=== PATIENT | male | born 1995 | race Caucasian/White ===

== ENCOUNTER 2016-06-01 16:02 | Inpatient (IN) | payer OTHER ==
--- NOTE | 2016-06-01 16:27 | Emergency Department Report ---
Chief Complaint: Upper Respiratory Infection Stated Complaint: CONGESTION/HEADACHE Time Seen by Provider: 06/01/16 16:27 - HPI History of Present Illness: 20 year old male presents with cough and chest congestion. states that he had URI symptoms few days ago such as sore throat and runny nose that are improved. states now he is still cough, having sob and Arturo. sates feeling chills and feverish. - Exam Vital Signs: Vital Signs 06/01/16 16:11 Temperature 98.6 F Pulse Rate 126 H Respiratory 18 Rate Blood Pressure 116/78 O2 Sat by Pulse 93 Oximetry Physical Exam: patient doesnt appear distressed HR is 126 O2 is 93% lungs- slight wheezing, otherwise CTA cardio- RRR MSE screening note: Focused history and physical exam performed. Due to findings the following was ordered: ED Disposition for MSE Condition: Stable
[2016-06-01 17:14] LABS: Hemoglobin 16.6 gm/dl (11.8-15.2); Mean Corpuscular HGB Conc 34 % (32-34); Mean Corpuscular Hemoglobin 31 pg (28-32); Mean Corpuscular Volume 92 fl (84-94); Platelet Count 225 K/mm3 (140-440); Red Blood Count 5.34 M/mm3 (3.65-5.03); Red Cell Distribution Width 12.8 % (13.2-15.2); White Blood Count 14.4 K/mm3 (4.5-11.0)
[2016-06-01 17:48] LABS: Alanine Aminotransferase 12 units/L (7-56); Albumin 3.8 g/dL (3.9-5); Albumin/Globulin Ratio 1.2 %; Alkaline Phosphatase 83 units/L (35-129); Anion Gap 21 mmol/L; Bilirubin,Total 0.6 mg/dL (0.1-1.2); Blood Urea Nitrogen 18 mg/dL (9-20); Calcium 8.7 mg/dL (8.4-10.2); Carbon Dioxide 23 mmol/L (22-30); Chloride 94.4 mmol/L (98-107); Glucose 125 mg/dL (75-100); Potassium 4.7 mmol/L (3.6-5.0); Sodium 134 mmol/L (137-145); Total Protein 7.1 g/dL (6.3-8.2)
[2016-06-01 18:54] LABS: Basophils % (Manual) 0 % (0.0-1.8); Blastocytes % (Manual) 0 %; Diff Status Complete; Eosinophils % (Manual) 0 % (0.0-4.3); RBC Morphology Normal
[2016-06-02] MEDS ORDERED: NACL 0.9% 1000 ML 1,000 ML IV ONE ×2 (02:20→07:14)
[2016-06-02] MEDS ORDERED: XOPENEX IH ONE (02:23)
[2016-06-02] MEDS ORDERED: LEVAQUIN 750MG/150ML 150 ML IV ONE (02:23)
--- NOTE | 2016-06-02 02:26 | Emergency Department Report ---
HPI - General Chief Complaint: Upper Respiratory Infection Time Seen by Provider: 06/02/16 02:19 - HPI HPI: This is a 20-year-old male presents to the emergency department with complaint of a 2 day history of a productive cough, chest congestion and discomfort as well as a headache. Patient was found to have an oxygen saturation of 93% on room air. Triage. The shortness of breath worsens with walking. No recent travel or sick contacts at home. He does not have a primary care doctor. Patient does not present with any fever but has been having some intermittent chills and sweats. He has not taken anything for his symptoms prior to presentation. He has a past medical history of asthma. He denies tobacco abuse. ED Past Medical Hx - Medications Home Medications: Home Medications Medication Instructions Recorded Confirmed Last Taken Type No Known Home Medications [No 06/01/16 06/01/16 Unknown History Reported Home Medications] ED Review of Systems ROS: Stated complaint: CONGESTION/HEADACHE Other details as noted in HPI Comment: All other systems reviewed and negative Constitutional: chills, fever (subjective) Eyes: denies: eye pain, eye discharge, vision change ENT: denies: ear pain, throat pain Respiratory: cough, shortness of breath Cardiovascular: chest pain. denies: palpitations Gastrointestinal: denies: abdominal pain, nausea, diarrhea Genitourinary: denies: urgency, dysuria Musculoskeletal: denies: back pain, joint swelling, arthralgia Skin: denies: rash, lesions Neurological: headache. denies: weakness Physical Exam - Physical Exam Vital Signs: Vital Signs 06/01/16 16:11 Temperature 98.6 F Pulse Rate 126 H Respiratory 18 Rate Blood Pressure 116/78 O2 Sat by Pulse 93 Oximetry Physical Exam: GENERAL: The patient is well-developed well-nourished. HEENT: Normocephalic. Atraumatic. Extraocular motions are intact. Patient has moist mucous membranes. Pupils equal reactive to light bilaterally. NECK: Supple. Trachea is midline. CHEST/LUNGS: Patient has rhonchi to the right base. Mild wheezing throughout the chest. A productive cough heard during examination. There is mild tachypnea but no accessory muscle use. There is no respiratory distress noted. HEART/CARDIOVASCULAR: Regular. There is mild to moderate tachycardia. There is no gallop rub or murmur. ABDOMEN: Abdomen is soft, nontender. Patient has normal bowel sounds. There is no abdominal distention. SKIN: There is no rash. There is no edema. There is no diaphoresis. NEURO: The patient is awake, alert, and oriented. The patient is cooperative. The patient has no focal neurologic deficits. The patient has normal speech. MUSCULOSKELETAL: There is no tenderness or deformity. There is no limitation range of motion. There is no evidence of acute injury. ED Course Vital Signs 06/01/16 16:11 Temperature 98.6 F Pulse Rate 126 H Respiratory 18 Rate Blood Pressure 116/78 O2 Sat by Pulse 93 Oximetry ED Medical Decision Making - Lab Data Result diagrams: 06/01/16 16:47 06/01/16 16:47 - Radiology Data Radiology results: image reviewed interpreted by me: Chest x-ray shows patchy infiltrates to the right middle and/or lower lobe consistent with pneumonia. - Medical Decision Making 20-year-old male presents to the emergency department with some chest pain and shortness breath and some mild hypoxia on room air. Lung sounds are consistent with rhonchi on the right side. This is compatible with the chest x-ray which shows infiltrates to the right lower and/or middle lobes concerning for pneumonia. Patient has consistent tachycardia despite IV fluid resuscitation. Blood cultures obtained and patient started on IV antibiotics and will be admitted to the hospital for multilobar pneumonia. - Differential Diagnosis pneumonia, bronchitis, asthma, CHF, PE Critical Care Time: No Critical care attestation.: If time is entered above; I have spent that time in minutes in the direct care of this critically ill patient, excluding procedure time. ED Disposition Clinical Impression: Pneumonia Qualifiers: Pneumonia type: due to unspecified organism Laterality: right Lung location: unspecified part of lung Qualified Code(s): J18.9 - Pneumonia, unspecified organism Dyspnea Qualifiers: Dyspnea type: shortness of breath Qualified Code(s): R06.02 - Shortness of breath Chest pain Qualifiers: Chest pain type: unspecified Qualified Code(s): R07.9 - Chest pain, unspecified Disposition: OP ADMITTED IP TO THIS HOSP Is pt being admited?: Yes Condition: Stable Instructions: Bacterial Pneumonia (ED), Chest Pain (ED) Time of Disposition: 04:04
[2016-06-02] MEDS ORDERED: NACL 0.9% NEBU ONE (02:59)
--- NOTE | 2016-06-02 03:13 | XRay Report ---
FINAL REPORT EXAM: XR CHEST ROUTINE 2V HISTORY: cough, low 02 COMPARISON: None available. FINDINGS:: Frontal and lateral views of the chest obtained. Cardiac silhouette is within normal limits. Patchy airspace consolidation right lower lobe and right middle lobe concerning for pneumonia. Left lung is grossly clear. No pneumothorax. Bony structures are grossly intact. IMPRESSION:: Patchy airspace consolidations right middle lobe and right lower lobe concerning for pneumonia.
--- NOTE | 2016-06-02 04:12 | History and Physical Report ---
History of Present Illness Chief complaint: Coughing up stuff History of present illness: 20 YO male with Asthma presents to ED for evaluation. PT states that he has been experiencing productive cough of yellow-greenish sputum for the past 3 days. Pt acknowledges shortness of breath, chills, sweats. Pt denies recent travel or sick contacts at home, risk factors for HIV. Past History Past Medical History: No medical history, other (reviewed) Past Surgical History: No surgical history, Other (reviewed) Social history: no significant social history Family history: no significant family history Medications and Allergies Allergies Allergy/AdvReac Type Severity Reaction Status Date / Time amoxicillin Allergy Vomiting Verified 06/01/16 16:15 Home Medications Medication Instructions Recorded Confirmed Last Taken Type No Known Home Medications [No 06/01/16 06/01/16 Unknown History Reported Home Medications] Review of Systems All systems: negative Respiratory: cough Exam - Constitutional Vitals: Temp Pulse Resp BP Pulse Ox 98.6 F 129 H 20 99/53 95 06/01/16 16:11 06/02/16 03:18 06/02/16 03:18 06/02/16 03:08 06/02/16 03:08 General appearance: Present: no acute distress, well-nourished - EENT Eyes: Present: PERRL ENT: hearing intact, clear oral mucosa - Neck Neck: Present: supple, normal ROM - Respiratory Respiratory effort: normal Respiratory: bilateral: CTA - Cardiovascular Heart Sounds: Present: S1 & S2. Absent: rub, click - Extremities Extremities: pulses symmetrical, No edema Peripheral Pulses: within normal limits - Abdominal General gastrointestinal: Present: soft, non-tender, non-distended, normal bowel sounds Male genitourinary: Present: normal - Integumentary Integumentary: Present: clear, warm, dry - Musculoskeletal Musculoskeletal: gait normal, strength equal bilaterally - Psychiatric Psychiatric: appropriate mood/affect, intact judgment & insight - Neurologic Neurologic: CNII-XII intact, moves all extremities Results - Labs CBC & Chem 7: 06/01/16 16:47 06/01/16 16:47 Labs: Abnormal lab results 06/01/16 06/01/16 Range/Units 16:47 16:47 WBC 14.4 H (4.5-11.0) K/mm3 RBC 5.34 H (3.65-5.03) M/mm3 Hgb 16.6 H (11.8-15.2) gm/dl Hct 49.0 H (35.5-45.6) % RDW 12.8 L (13.2-15.2) % Seg Neuts % (Manual) 94.0 H (40.0-70.0) % Lymphocytes % (Manual) 4.0 L (13.4-35.0) % Seg Neutrophils # Man 13.5 H (1.8-7.7) K/mm3 Lymphocytes # (Manual) 0.6 L (1.2-5.4) K/mm3 Sodium 134 L (137-145) mmol/L Chloride 94.4 L (98-107) mmol/L Glucose 125 H (75-100) mg/dL Albumin 3.8 L (3.9-5) g/dL Assessment and Plan - Patient Problems (1) Pneumonia Current Visit: Yes Status: Acute Qualifiers: Pneumonia type: due to unspecified organism Laterality: right Lung location: unspecified part of lung Qualified Code(s): J18.9 - Pneumonia, unspecified organism Plan to address problem: Pneumonia protocol: Iv abx, ivf, blood cultures, supportive care. (2) DVT prophylaxis Current Visit: Yes Status: Acute
[2016-06-02] MEDS ORDERED: TYLENOL PO PRN (04:13)
[2016-06-02] MEDS ORDERED: VANCOMYCIN VIAL 1,250 MG in NACL 0.9% 500 ML 500 ML IV ONE (04:15)
[2016-06-02] MEDS ORDERED: PROVENTIL IH PRN (07:13)
--- NOTE | 2016-06-02 07:58 | Admit Criteria Form ---
Admission Criteria Documentation: PULMONARY DISEASE GRG Clinical Indications for Admission to Inpatient Care ( Place 'X' for any and all applicable criteria): Hospital admission is needed for appropriate care of the patient because of ANY ONE of the following(1): [ ]I. Impending or actual respiratory arrest ( Use Respiratory Failure Criteria for severe respiratory disease and long-term mechanical ventilation patients) (4) [ ]II. Severe airflow or ventilation abnormalities (not responsive to emergency and observation care treatment as appropriate) as indicated by ANY ONE of the following(5)(6)(7)(8) : [ ]a) PCO2 > 42 mm Hg (5.6 kPa) and pH < 7.35 (new) [ ]b) Documented PCO2 increase > 5 mm Hg (0.7 kPa) from disease baseline [ ]c) Airflow measurements[A] < 60% of previous best or predicted ( e.g., PEF <300 L/minute) despite intensive emergent treatment[B] [ ]d) Required respiratory treatments that are performable only in acute inpatient setting [X ]III. Severe respiratory findings (not responsive to emergency and observation care treatment as appropriate) including ANY ONE of the following(5)(8)(9): [X ]a) Respiratory distress as indicated by ALL of the following(5)(10) : [ X]i) Patient with ANY ONE of the following: [X ]1) Dyspnea (difficulty breathing) [ ]2) Abnormal breathing pattern (eg, chest retractions) [ ]3) Tachypnea [ ]4) Other evidence of difficulty breathing [X ]ii) Evidence of respiratory compromise indicated by ANY ONE of the following: [X ]1) Hypoxemia [ ]2) Altered mental status [ ]3) Other evidence of respiratory compromise (eg, pulmonary edema on chest x-ray) [ ]b) Stridor [ ]c) Gross hemoptysis(11) [ ]d) Acute cyanosis [ ]IV. High-risk pulmonary infection as indicated by ANY ONE of the following( 19)(20)(21)(22): [ ]a) Temperature less than 95 degrees F(35 degrees C) or greater than 103.1 degrees F(39.5 degrees C) [ ]b) Hemodynamic instability that remains after emergency or observation level care (as appropriate) [ ]c) Immunocompromised patient (eg, AIDS, post transplant, neutropenic) [ ]d) History of severe COPD [ ]e) History of severely symptomatic congestive heart failure [ ]f) Other high-risk comorbidity (eg, poorly controlled diabetes, cirrhosis, chronic renal insufficiency) [ ]g) Hypoxemia (new) [ ]h) Outpatient, observation, or recovery facility therapy has failed, is not appropriate, or is not feasible [ ]V. Severe atelectasis or lung collapse(15)(16) [ ]. Tuberculosis requiring inpatient treatment as indicated by ANY ONE of the following(17)(18): [ ]a) New positive acid-fast bacilli sputum smear [ ]b) Positive acid-fast bacilli smear (under current treatment), with ANY ONE of the following: [ ]i) Unexposed household contacts [ ]ii) Infants or immunosuppressed household contacts [ ]iii) Patient unable or unwilling to avoid exposing others [ ]iv) Severe immunocompromised patient (eg, AIDS, post transplant, neutropenic) [ ]VII. Empyema or lung abscess(13)(14) [ ]VIII. Severe pulmonary arterial hypertension or pulmonary vascular disease requiring inpatient care indicated by ANY ONE of the following(24)(25): [ ]a) Initiation or change of vasodilators (IV, subcutaneous, or inhaled) or other vasoactive medications needed [ ]b) IV anticoagulation needed (eg, immediate anticoagulation necessary, alternatives not appropriate) [ ]c) Arterial or pulmonary artery catheter monitoring needed due to infusion or other treatment [ ]IX. Chronic lung disease with severe deterioration (not responsive to emergency and observation care treatment as appropriate) as indicated by ANY ONE of the following (6)(12): [ ]a) SaO2 5% below baseline in patient with chronic hypoxemia [ ]b) New requirement for supplemental oxygen to keep SaO2 at baseline or acceptable level [ ]c) Required supplemental oxygen performable only in acute inpatient setting [ ]d) Severe airflow or ventilation abnormalities [ ]e) Rapid rate of exacerbation onset [ ]f) Previously mobile patient unable to walk between rooms [ ]g) Inability to eat or sleep due to dyspnea [ ]h) Altered mental status [ ]X. Cystic fibrosis with severe deterioration as indicated by ANY ONE of the following(26)(27): [ ]a) Severe exacerbation that does not respond to intensified home therapy [ ]b) Pneumonia [ ]c) Hemoptysis [ ]d) Atelectasis [ ]e) Pneumothorax [ ]f) Respiratory failure [ ]g) Severe exacerbation with patient unable to perform prescribed treatments at home [ ]XI. Severe right heart failure as indicated by ANY ONE of the following(24) (25): [ ]a) Increasing organ failure (eg, liver congestion with significant and worsening or new elevation of transaminases) [ ]b) Anasarca [ ]c) Angina that requires inpatient care (eg, not treatable in emergency or observation level of care) [ ]d) Respiratory distress [ ]e) Syncope [ ]f) SBP < 90 mm Hg (new) [ ]XII. Injury requiring inpatient care (medical) as indicated by ANY ONE of the following(28): [ ]a) Significant inhalation injury (eg, smoke inhalation, other toxic inhalation) (29)(30)(31) [ ]b) Airway obstruction that remains or is unstable after emergency or observation level care(32) [ ]c) Severe pain requiring acute inpatient management [ ]d) Lung contusion [ ]e) Bronchial tree injury [ ]f) Air or fat emboli(33) [ ]g) Other injury not treatable in emergency or observation level care (eg, hemothorax) (34) [ ]XIII. Pulmonary hemorrhage or significant hemoptysis(11)(35)(36) [ ]XIV. Inpatient palliative care needed[C](37)(38)(39)(40) [ ]XV. Complications of lung transplant (eg, rejection, failure, respiratory infection) (23) [ ]XVI. Pulmonary Disease and ANY ONE of the following: [ ]a) General Admission Criteria [ ]b) Pediatric General Admission Criteria The original [facility] content created by [facility] has been revised. The portions of the content which have been revised are identified through the use of italic text or in bold, and [facility] has neither reviewed nor approved the modified material. All other unmodified content is copyright [facility]. Please see references footnoted in the original [facility] edition 2016 Admission Criteria Met: Yes
[2016-06-02] MEDS ORDERED: NACL 0.9% 1000 ML 1,000 ML ONE (08:38)
[2016-06-02] MEDS: LEVAQUIN 750MG/150ML 150 ML IV SCH (11:30)
[2016-06-02] MEDS: NACL 0.45% 1000 ML 1,000 ML IV SCH ×2 (11:30→22:29)
--- NOTE | 2016-06-02 12:49 | Progress Note ---
Assessment and Plan Assessment and plan: 1. Sepsis present on admission to community-acquired acquired RT middle and lower lobe pneumonia-continue IV Levaquin, follow-up with blood cultures. Monitor white count and blood cultures, blood cultures; continue supplemental oxygen 2. DVT prophylaxis-Lovenox History Interval history: Follow-up for pneumonia Patient is seen at the bedside, he has his mother present; remains short of breath but is starting to improve Hospitalist Physical - Constitutional Vitals: Temp Pulse Resp BP Pulse Ox 98.6 F 110 H 16 107/55 92 06/02/16 09:51 06/02/16 09:51 06/02/16 09:51 06/02/16 09:51 06/02/16 09:51 General appearance: Present: no acute distress (nasal cannula oxygen), well- nourished - EENT Eyes: Present: PERRL, EOM intact. Absent: scleral icterus, conjunctival injection ENT: hearing intact, clear oral mucosa, no oropharyngeal erythema, no poor dentition - Neck Neck: Present: supple, normal ROM. Absent: enlarged thyroid, masses or JVD - Respiratory Respiratory effort: normal Respiratory: right: diminished, rales, negative: rhonchi, wheezing - Cardiovascular Rhythm: regular Heart Sounds: Present: S1 & S2. Absent: gallop - Extremities Extremities: no ischemia, pulses intact, pulses symmetrical, No edema Peripheral Pulses: within normal limits - Abdominal General gastrointestinal: soft, non-tender, non-distended - Integumentary Integumentary: Present: clear - Psychiatric Psychiatric: appropriate mood/affect, intact judgment & insight - Neurologic Neurologic: CNII-XII intact, moves all extremities Results - Labs CBC & Chem 7: 06/01/16 16:47 06/01/16 16:47 Labs: Laboratory Last Values WBC 14.4 K/mm3 (4.5-11.0) H 06/01/16 16:47 RBC 5.34 M/mm3 (3.65-5.03) H 06/01/16 16:47 Hgb 16.6 gm/dl (11.8-15.2) H 06/01/16 16:47 Hct 49.0 % (35.5-45.6) H 06/01/16 16:47 MCV 92 fl (84-94) 06/01/16 16:47 MCH 31 pg (28-32) 06/01/16 16:47 MCHC 34 % (32-34) 06/01/16 16:47 RDW 12.8 % (13.2-15.2) L 06/01/16 16:47 Plt Count 225 K/mm3 (140-440) 06/01/16 16:47 Add Manual Diff Complete 06/01/16 16:47 Total Counted 100 06/01/16 16:47 Seg Neutrophils % Ski Lift Attendant 06/01/16 16:47 Seg Neuts % (Manual) 94.0 % (40.0-70.0) H 06/01/16 16:47 Band Neutrophils % 0 % 06/01/16 16:47 Lymphocytes % (Manual) 4.0 % (13.4-35.0) L 06/01/16 16:47 Reactive Lymphs % (Man) 0 % 06/01/16 16:47 Monocytes % (Manual) 2.0 % (0.0-7.3) 06/01/16 16:47 Eosinophils % (Manual) 0 % (0.0-4.3) 06/01/16 16:47 Basophils % (Manual) 0 % (0.0-1.8) 06/01/16 16:47 Metamyelocytes % 0 % 06/01/16 16:47 Myelocytes % 0 % 06/01/16 16:47 Promyelocytes % 0 % 06/01/16 16:47 Blast Cells % 0 % 06/01/16 16:47 Nucleated RBC % Not Reportable 06/01/16 16:47 Seg Neutrophils # Man 13.5 K/mm3 (1.8-7.7) H 06/01/16 16:47 Band Neutrophils # 0.0 K/mm3 06/01/16 16:47 Lymphocytes # (Manual) 0.6 K/mm3 (1.2-5.4) L 06/01/16 16:47 Abs React Lymphs (Man) 0.0 K/mm3 06/01/16 16:47 Monocytes # (Manual) 0.3 K/mm3 (0.0-0.8) 06/01/16 16:47 Eosinophils # (Manual) 0.0 K/mm3 (0.0-0.4) 06/01/16 16:47 Basophils # (Manual) 0.0 K/mm3 (0.0-0.1) 06/01/16 16:47 Metamyelocytes # 0.0 K/mm3 06/01/16 16:47 Myelocytes # 0.0 K/mm3 06/01/16 16:47 Promyelocytes # 0.0 K/mm3 06/01/16 16:47 Blast Cells # 0.0 K/mm3 06/01/16 16:47 WBC Morphology Not Reportable 06/01/16 16:47 Hypersegmented Neuts Not Reportable 06/01/16 16:47 Hyposegmented Neuts Not Reportable 06/01/16 16:47 Hypogranular Neuts Not Reportable 06/01/16 16:47 Smudge Cells Not Reportable 06/01/16 16:47 Toxic Granulation Not Reportable 06/01/16 16:47 Toxic Vacuolation Not Reportable 06/01/16 16:47 Dohle Bodies Not Reportable 06/01/16 16:47 Pelger-Huet Anomaly Not Reportable 06/01/16 16:47 Bridgette Rods Not Reportable 06/01/16 16:47 Platelet Estimate Appears normal 06/01/16 16:47 Clumped Platelets Not Reportable 06/01/16 16:47 Plt Clumps, EDTA Not Reportable 06/01/16 16:47 Large Platelets Not Reportable 06/01/16 16:47 Giant Platelets Not Reportable 06/01/16 16:47 Platelet Satelliting Not Reportable 06/01/16 16:47 Plt Morphology Comment Not Reportable 06/01/16 16:47 RBC Morphology Normal 06/01/16 16:47 Dimorphic RBCs Not Reportable 06/01/16 16:47 Polychromasia Not Reportable 06/01/16 16:47 Hypochromasia Not Reportable 06/01/16 16:47 Poikilocytosis Not Reportable 06/01/16 16:47 Anisocytosis Not Reportable 06/01/16 16:47 Microcytosis Not Reportable 06/01/16 16:47 Macrocytosis Not Reportable 06/01/16 16:47 Spherocytes Not Reportable 06/01/16 16:47 Pappenheimer Bodies Not Reportable 06/01/16 16:47 Sickle Cells Not Reportable 06/01/16 16:47 Target Cells Not Reportable 06/01/16 16:47 Tear Drop Cells Not Reportable 06/01/16 16:47 Ovalocytes Not Reportable 06/01/16 16:47 Helmet Cells Not Reportable 06/01/16 16:47 Mathew-[place]ople Bodies Not Reportable 06/01/16 16:47 [place] Rings Not Reportable 06/01/16 16:47 Terry Cells Not Reportable 06/01/16 16:47 Bite Cells Not Reportable 06/01/16 16:47 Crenated Cell Not Reportable 06/01/16 16:47 Elliptocytes Not Reportable 06/01/16 16:47 Acanthocytes (Spur) Not Reportable 06/01/16 16:47 Rouleaux Not Reportable 06/01/16 16:47 Hemoglobin C Crystals Not Reportable 06/01/16 16:47 Schistocytes Not Reportable 06/01/16 16:47 Malaria parasites Not Reportable 06/01/16 16:47 Ha Bodies Not Reportable 06/01/16 16:47 Hem Pathologist Commnt No 06/01/16 16:47 Sodium 134 mmol/L (137-145) L 06/01/16 16:47 Potassium 4.7 mmol/L (3.6-5.0) 06/01/16 16:47 Chloride 94.4 mmol/L (98-107) L 06/01/16 16:47 Carbon Dioxide 23 mmol/L (22-30) 06/01/16 16:47 Anion Gap 21 mmol/L 06/01/16 16:47 BUN 18 mg/dL (9-20) 06/01/16 16:47 Creatinine 1.0 mg/dL (0.8-1.5) 06/01/16 16:47 Estimated GFR > 60 ml/min 06/01/16 16:47 BUN/Creatinine Ratio 18.00 % 06/01/16 16:47 Glucose 125 mg/dL (75-100) H 06/01/16 16:47 Lactic Acid 2.6 mmol/L (0.7-2.0) H* 06/02/16 04:22 Calcium 8.7 mg/dL (8.4-10.2) 06/01/16 16:47 Total Bilirubin 0.6 mg/dL (0.1-1.2) 06/01/16 16:47 AST 12 units/L (5-40) 06/01/16 16:47 ALT 12 units/L (7-56) 06/01/16 16:47 Alkaline Phosphatase 83 units/L (35-129) 06/01/16 16:47 Total Protein 7.1 g/dL (6.3-8.2) 06/01/16 16:47 Albumin 3.8 g/dL (3.9-5) L 06/01/16 16:47 Albumin/Globulin Ratio 1.2 % 06/01/16 16:47 - Imaging and Cardiology Chest x-ray: report reviewed (Chest x-ray patchy airspace consolidation in the right middle lobe and right lower lobe concerning for pneumonia)
[2016-06-02] MEDS: MUCINEX ER PO SCH ×2 (15:54→22:26)
[2016-06-02] MEDS: PROVENTIL IH SCH (21:19)
[2016-06-03 07:41] LABS: Hematocrit 40.7 % (35.5-45.6); Hemoglobin 13.7 gm/dl (11.8-15.2); Mean Corpuscular HGB Conc 34 % (32-34); Mean Corpuscular Hemoglobin 31 pg (28-32); Mean Corpuscular Volume 92 fl (84-94); Platelet Count 244 K/mm3 (140-440); Red Blood Count 4.43 M/mm3 (3.65-5.03); Red Cell Distribution Width 12.9 % (13.2-15.2); White Blood Count 13.9 K/mm3 (4.5-11.0)
[2016-06-03 07:55] LABS: BUN/Creatinine Ratio 14.28; Blood Urea Nitrogen 10 mg/dL (9-20); Calcium 8.7 mg/dL (8.4-10.2); Carbon Dioxide 25 mmol/L (22-30); Chloride 101.7 mmol/L (98-107); Glucose 101 mg/dL (75-100); Potassium 3.8 mmol/L (3.6-5.0); Sodium 138 mmol/L (137-145)
[2016-06-03 07:59] LABS: Anion Gap 15 mmol/L
[2016-06-03] MEDS: PROVENTIL IH SCH ×3 (08:22→19:29)
[2016-06-03] MEDS: NACL 0.45% 1000 ML 1,000 ML IV SCH (09:18)
[2016-06-03] MEDS: MUCINEX ER PO SCH ×2 (09:19→22:20)
[2016-06-03] MEDS: LEVAQUIN 750MG/150ML 150 ML IV SCH (09:19)
[2016-06-03 10:06] LABS: Basophils % (Manual) 0 % (0.0-1.8); Blastocytes % (Manual) 0 %; Eosinophils % (Manual) 0 % (0.0-4.3)
[2016-06-03 10:07] LABS: Diff Status Complete; RBC Morphology Normal
--- NOTE | 2016-06-03 16:05 | Progress Note ---
Assessment and Plan Assessment and plan: 1. Sepsis present on admission to [facility]-improving; wbc improving; continue IV Levaquin, follow-up with blood cultures; continue supplemental oxygen 2. DVT prophylaxis-Lovenox History Interval history: Follow-up for pneumonia Patient is seen at the bedside, shortness of breath improving Hospitalist Physical - Constitutional Vitals: Temp Pulse Resp BP Pulse Ox 98.5 F 109 H 20 109/63 96 06/03/16 08:45 06/03/16 13:58 06/03/16 13:58 06/03/16 08:45 06/03/16 08:45 General appearance: Present: no acute distress (nasal cannula oxygen), well- nourished - EENT Eyes: Present: PERRL, EOM intact. Absent: scleral icterus, conjunctival injection ENT: hearing intact, clear oral mucosa, no oropharyngeal erythema, no poor dentition - Neck Neck: Present: supple, normal ROM. Absent: enlarged thyroid, masses or JVD - Respiratory Respiratory effort: normal Respiratory: negative: diminished, rales, rhonchi, wheezing - Cardiovascular Rhythm: regular Heart Sounds: Present: S1 & S2. Absent: gallop - Extremities Extremities: no ischemia, pulses intact, pulses symmetrical, No edema Peripheral Pulses: within normal limits - Abdominal General gastrointestinal: soft, non-tender, non-distended - Integumentary Integumentary: Present: clear - Psychiatric Psychiatric: appropriate mood/affect, intact judgment & insight, cooperative - Neurologic Neurologic: CNII-XII intact, moves all extremities Results - Labs CBC & Chem 7: 06/03/16 06:30 06/03/16 06:30 Labs: Laboratory Last Values WBC 13.9 K/mm3 (4.5-11.0) H 06/03/16 06:30 RBC 4.43 M/mm3 (3.65-5.03) 06/03/16 06:30 Hgb 13.7 gm/dl (11.8-15.2) 06/03/16 06:30 Hct 40.7 % (35.5-45.6) D 06/03/16 06:30 MCV 92 fl (84-94) 06/03/16 06:30 MCH 31 pg (28-32) 06/03/16 06:30 MCHC 34 % (32-34) 06/03/16 06:30 RDW 12.9 % (13.2-15.2) L 06/03/16 06:30 Plt Count 244 K/mm3 (140-440) 06/03/16 06:30 Add Manual Diff Complete 06/03/16 06:30 Total Counted 100 06/03/16 06:30 Seg Neutrophils % Order Booker 06/01/16 16:47 Seg Neuts % (Manual) 81.0 % (40.0-70.0) H 06/03/16 06:30 Band Neutrophils % 14.0 % 06/03/16 06:30 Lymphocytes % (Manual) 2.0 % (13.4-35.0) L 06/03/16 06:30 Reactive Lymphs % (Man) 0 % 06/03/16 06:30 Monocytes % (Manual) 3.0 % (0.0-7.3) 06/03/16 06:30 Eosinophils % (Manual) 0 % (0.0-4.3) 06/03/16 06:30 Basophils % (Manual) 0 % (0.0-1.8) 06/03/16 06:30 Metamyelocytes % 0 % 06/03/16 06:30 Myelocytes % 0 % 06/03/16 06:30 Promyelocytes % 0 % 06/03/16 06:30 Blast Cells % 0 % 06/03/16 06:30 Nucleated RBC % Not Reportable 06/03/16 06:30 Seg Neutrophils # Man 11.3 K/mm3 (1.8-7.7) H 06/03/16 06:30 Band Neutrophils # 1.9 K/mm3 06/03/16 06:30 Lymphocytes # (Manual) 0.3 K/mm3 (1.2-5.4) L 06/03/16 06:30 Abs React Lymphs (Man) 0.0 K/mm3 06/03/16 06:30 Monocytes # (Manual) 0.4 K/mm3 (0.0-0.8) 06/03/16 06:30 Eosinophils # (Manual) 0.0 K/mm3 (0.0-0.4) 06/03/16 06:30 Basophils # (Manual) 0.0 K/mm3 (0.0-0.1) 06/03/16 06:30 Metamyelocytes # 0.0 K/mm3 06/03/16 06:30 Myelocytes # 0.0 K/mm3 06/03/16 06:30 Promyelocytes # 0.0 K/mm3 06/03/16 06:30 Blast Cells # 0.0 K/mm3 06/03/16 06:30 WBC Morphology Not Reportable 06/03/16 06:30 Hypersegmented Neuts Not Reportable 06/03/16 06:30 Hyposegmented Neuts Not Reportable 06/03/16 06:30 Hypogranular Neuts Not Reportable 06/03/16 06:30 Smudge Cells Not Reportable 06/03/16 06:30 Toxic Granulation Not Reportable 06/03/16 06:30 Toxic Vacuolation Not Reportable 06/03/16 06:30 Dohle Bodies Not Reportable 06/03/16 06:30 Pelger-Huet Anomaly Not Reportable 06/03/16 06:30 Bridgette Rods Not Reportable 06/03/16 06:30 Platelet Estimate Appears normal 06/03/16 06:30 Clumped Platelets Not Reportable 06/03/16 06:30 Plt Clumps, EDTA Not Reportable 06/03/16 06:30 Large Platelets Not Reportable 06/03/16 06:30 Giant Platelets Not Reportable 06/03/16 06:30 Platelet Satelliting Not Reportable 06/03/16 06:30 Plt Morphology Comment Not Reportable 06/03/16 06:30 RBC Morphology Normal 06/03/16 06:30 Dimorphic RBCs Not Reportable 06/03/16 06:30 Polychromasia Not Reportable 06/03/16 06:30 Hypochromasia Not Reportable 06/03/16 06:30 Poikilocytosis Not Reportable 06/03/16 06:30 Anisocytosis Not Reportable 06/03/16 06:30 Microcytosis Not Reportable 06/03/16 06:30 Macrocytosis Not Reportable 06/03/16 06:30 Spherocytes Not Reportable 06/03/16 06:30 Pappenheimer Bodies Not Reportable 06/03/16 06:30 Sickle Cells Not Reportable 06/03/16 06:30 Target Cells Not Reportable 06/03/16 06:30 Tear Drop Cells Not Reportable 06/03/16 06:30 Ovalocytes Not Reportable 06/03/16 06:30 Helmet Cells Not Reportable 06/03/16 06:30 [place] Bodies Not Reportable 06/03/16 06:30 [place] Rings Not Reportable 06/03/16 06:30 [place] Cells Not Reportable 06/03/16 06:30 Bite Cells Not Reportable 06/03/16 06:30 Crenated Cell Not Reportable 06/03/16 06:30 Elliptocytes Not Reportable 06/03/16 06:30 Acanthocytes (Spur) Not Reportable 06/03/16 06:30 Rouleaux Not Reportable 06/03/16 06:30 Hemoglobin C Crystals Not Reportable 06/03/16 06:30 Schistocytes Not Reportable 06/03/16 06:30 Malaria parasites Not Reportable 06/03/16 06:30 Ha Bodies Not Reportable 06/03/16 06:30 Hem Pathologist Commnt No 06/03/16 06:30 Sodium 138 mmol/L (137-145) 06/03/16 06:30 Potassium 3.8 mmol/L (3.6-5.0) 06/03/16 06:30 Chloride 101.7 mmol/L (98-107) 06/03/16 06:30 Carbon Dioxide 25 mmol/L (22-30) 06/03/16 06:30 Anion Gap 15 mmol/L 06/03/16 06:30 BUN 10 mg/dL (9-20) 06/03/16 06:30 Creatinine 0.7 mg/dL (0.8-1.5) L 06/03/16 06:30 Estimated GFR > 60 ml/min 06/03/16 06:30 BUN/Creatinine Ratio 14.28 % 06/03/16 06:30 Glucose 101 mg/dL (75-100) H 06/03/16 06:30 Lactic Acid 1.7 mmol/L (0.7-2.0) 06/02/16 16:12 Calcium 8.7 mg/dL (8.4-10.2) 06/03/16 06:30 Total Bilirubin 0.6 mg/dL (0.1-1.2) 06/01/16 16:47 AST 12 units/L (5-40) 06/01/16 16:47 ALT 12 units/L (7-56) 06/01/16 16:47 Alkaline Phosphatase 83 units/L (35-129) 06/01/16 16:47 Total Protein 7.1 g/dL (6.3-8.2) 06/01/16 16:47 Albumin 3.8 g/dL (3.9-5) L 06/01/16 16:47 Albumin/Globulin Ratio 1.2 % 06/01/16 16:47 Microbiology 06/02/16 16:20 Peripheral/Venous Blood Culture - Preliminary Culture in Progress 06/02/16 16:12 Peripheral/Venous Blood Culture - Preliminary Culture in Progress
[2016-06-04] MEDS: PROVENTIL IH SCH ×3 (07:37→21:25)
[2016-06-04 08:15] LABS: Hematocrit 41.7 % (35.5-45.6); Hemoglobin 14.1 gm/dl (11.8-15.2); Mean Corpuscular HGB Conc 34 % (32-34); Mean Corpuscular Hemoglobin 31 pg (28-32); Mean Corpuscular Volume 91 fl (84-94); Platelet Count 278 K/mm3 (140-440); Red Blood Count 4.59 M/mm3 (3.65-5.03); Red Cell Distribution Width 12.9 % (13.2-15.2); White Blood Count 9.6 K/mm3 (4.5-11.0)
[2016-06-04] MEDS: MUCINEX ER PO SCH ×2 (09:00→21:28)
[2016-06-04] MEDS: LEVAQUIN 750MG/150ML 150 ML IV SCH (09:00)
[2016-06-04 10:20] LABS: Basophils % (Manual) 0 % (0.0-1.8); Blastocytes % (Manual) 0 %; Eosinophils % (Manual) 0 % (0.0-4.3)
[2016-06-04 10:21] LABS: Diff Status Complete; RBC Morphology Normal
--- NOTE | 2016-06-04 14:43 | Progress Note ---
Assessment and Plan Assessment and plan: 1. Sepsis present on admission to [facility]-improving; wbc improving; continue IV Levaquin, follow-up with blood cultures; continue supplemental oxygen 2. DVT prophylaxis-Lovenox possible d/c in the a.m History Interval history: Follow-up for pneumonia Patient is seen at the bedside, shortness of breath improving; tachycardic on ambulation Hospitalist Physical - Constitutional Vitals: Temp Pulse Resp BP Pulse Ox 98.3 F 81 20 115/74 100 06/04/16 12:00 06/04/16 12:00 06/04/16 12:00 06/04/16 12:00 06/04/16 12:00 General appearance: Present: no acute distress (nasal cannula oxygen), well- nourished - EENT Eyes: Present: PERRL, EOM intact. Absent: scleral icterus, conjunctival injection ENT: hearing intact, clear oral mucosa, no oropharyngeal erythema, no poor dentition - Neck Neck: Present: supple, normal ROM. Absent: enlarged thyroid, masses or JVD - Respiratory Respiratory effort: normal Respiratory: bilateral: diminished, negative: rales, rhonchi, wheezing - Cardiovascular Rhythm: regular Heart Sounds: Present: S1 & S2. Absent: gallop - Extremities Extremities: no ischemia, pulses intact, pulses symmetrical, No edema Peripheral Pulses: within normal limits - Abdominal General gastrointestinal: soft, non-tender, non-distended - Integumentary Integumentary: Present: clear - Psychiatric Psychiatric: appropriate mood/affect, intact judgment & insight - Neurologic Neurologic: CNII-XII intact, moves all extremities Results - Labs CBC & Chem 7: 06/04/16 07:30 06/03/16 06:30 Labs: Laboratory Last Values WBC 9.6 K/mm3 (4.5-11.0) 06/04/16 07:30 RBC 4.59 M/mm3 (3.65-5.03) 06/04/16 07:30 Hgb 14.1 gm/dl (11.8-15.2) 06/04/16 07:30 Hct 41.7 % (35.5-45.6) 06/04/16 07:30 MCV 91 fl (84-94) 06/04/16 07:30 MCH 31 pg (28-32) 06/04/16 07:30 MCHC 34 % (32-34) 06/04/16 07:30 RDW 12.9 % (13.2-15.2) L 06/04/16 07:30 Plt Count 278 K/mm3 (140-440) 06/04/16 07:30 Add Manual Diff Complete 06/04/16 07:30 Total Counted 100 06/04/16 07:30 Seg Neutrophils % Wood Carving Machine Operator 06/01/16 16:47 Seg Neuts % (Manual) 66.0 % (40.0-70.0) 06/04/16 07:30 Band Neutrophils % 0 % 06/04/16 07:30 Lymphocytes % (Manual) 17.0 % (13.4-35.0) 06/04/16 07:30 Reactive Lymphs % (Man) 0 % 06/04/16 07:30 Monocytes % (Manual) 9.0 % (0.0-7.3) H 06/04/16 07:30 Eosinophils % (Manual) 0 % (0.0-4.3) 06/04/16 07:30 Basophils % (Manual) 0 % (0.0-1.8) 06/04/16 07:30 Metamyelocytes % 8.0 % 06/04/16 07:30 Myelocytes % 0 % 06/04/16 07:30 Promyelocytes % 0 % 06/04/16 07:30 Blast Cells % 0 % 06/04/16 07:30 Nucleated RBC % Not Reportable 06/04/16 07:30 Seg Neutrophils # Man 6.3 K/mm3 (1.8-7.7) 06/04/16 07:30 Band Neutrophils # 0.0 K/mm3 06/04/16 07:30 Lymphocytes # (Manual) 1.6 K/mm3 (1.2-5.4) 06/04/16 07:30 Abs React Lymphs (Man) 0.0 K/mm3 06/04/16 07:30 Monocytes # (Manual) 0.9 K/mm3 (0.0-0.8) H 06/04/16 07:30 Eosinophils # (Manual) 0.0 K/mm3 (0.0-0.4) 06/04/16 07:30 Basophils # (Manual) 0.0 K/mm3 (0.0-0.1) 06/04/16 07:30 Metamyelocytes # 0.8 K/mm3 06/04/16 07:30 Myelocytes # 0.0 K/mm3 06/04/16 07:30 Promyelocytes # 0.0 K/mm3 06/04/16 07:30 Blast Cells # 0.0 K/mm3 06/04/16 07:30 WBC Morphology Not Reportable 06/04/16 07:30 Hypersegmented Neuts Not Reportable 06/04/16 07:30 Hyposegmented Neuts Not Reportable 06/04/16 07:30 Hypogranular Neuts Not Reportable 06/04/16 07:30 Smudge Cells Not Reportable 06/04/16 07:30 Toxic Granulation Not Reportable 06/04/16 07:30 Toxic Vacuolation Not Reportable 06/04/16 07:30 Dohle Bodies Not Reportable 06/04/16 07:30 Pelger-[place]uet Anomaly Not Reportable 06/04/16 07:30 Bridgette Rods Not Reportable 06/04/16 07:30 Platelet Estimate Appears normal 06/04/16 07:30 Clumped Platelets Not Reportable 06/04/16 07:30 Plt Clumps, EDTA Not Reportable 06/04/16 07:30 Large Platelets Not Reportable 06/04/16 07:30 Giant Platelets Not Reportable 06/04/16 07:30 Platelet Satelliting Not Reportable 06/04/16 07:30 Plt Morphology Comment Not Reportable 06/04/16 07:30 RBC Morphology Normal 06/04/16 07:30 Dimorphic RBCs Not Reportable 06/04/16 07:30 Polychromasia Not Reportable 06/04/16 07:30 Hypochromasia Not Reportable 06/04/16 07:30 Poikilocytosis Not Reportable 06/04/16 07:30 Anisocytosis Not Reportable 06/04/16 07:30 Microcytosis Not Reportable 06/04/16 07:30 Macrocytosis Not Reportable 06/04/16 07:30 Spherocytes Not Reportable 06/04/16 07:30 Pappenheimer Bodies Not Reportable 06/04/16 07:30 Sickle Cells Not Reportable 06/04/16 07:30 Target Cells Not Reportable 06/04/16 07:30 Tear Drop Cells Not Reportable 06/04/16 07:30 Ovalocytes Not Reportable 06/04/16 07:30 Helmet Cells Not Reportable 06/04/16 07:30 [place] Bodies Not Reportable 06/04/16 07:30 [place] Rings Not Reportable 06/04/16 07:30 [place] Cells Not Reportable 06/04/16 07:30 Bite Cells Not Reportable 06/04/16 07:30 Crenated Cell Not Reportable 06/04/16 07:30 Elliptocytes Not Reportable 06/04/16 07:30 Acanthocytes (Spur) Not Reportable 06/04/16 07:30 Rouleaux Not Reportable 06/04/16 07:30 Hemoglobin C Crystals Not Reportable 06/04/16 07:30 Schistocytes Not Reportable 06/04/16 07:30 Malaria parasites Not Reportable 06/04/16 07:30 Ha Bodies Not Reportable 06/04/16 07:30 Hem Pathologist Commnt No 06/04/16 07:30 Sodium 138 mmol/L (137-145) 06/03/16 06:30 Potassium 3.8 mmol/L (3.6-5.0) 06/03/16 06:30 Chloride 101.7 mmol/L (98-107) 06/03/16 06:30 Carbon Dioxide 25 mmol/L (22-30) 06/03/16 06:30 Anion Gap 15 mmol/L 06/03/16 06:30 BUN 10 mg/dL (9-20) 06/03/16 06:30 Creatinine 0.7 mg/dL (0.8-1.5) L 06/03/16 06:30 Estimated GFR > 60 ml/min 06/03/16 06:30 BUN/Creatinine Ratio 14.28 % 06/03/16 06:30 Glucose 101 mg/dL (75-100) H 06/03/16 06:30 Lactic Acid 1.7 mmol/L (0.7-2.0) 06/02/16 16:12 Calcium 8.7 mg/dL (8.4-10.2) 06/03/16 06:30 Total Bilirubin 0.6 mg/dL (0.1-1.2) 06/01/16 16:47 AST 12 units/L (5-40) 06/01/16 16:47 ALT 12 units/L (7-56) 06/01/16 16:47 Alkaline Phosphatase 83 units/L (35-129) 06/01/16 16:47 Total Protein 7.1 g/dL (6.3-8.2) 06/01/16 16:47 Albumin 3.8 g/dL (3.9-5) L 06/01/16 16:47 Albumin/Globulin Ratio 1.2 % 06/01/16 16:47 Microbiology 06/02/16 16:20 Peripheral/Venous Blood Culture - Preliminary NO GROWTH AFTER 24 HOURS 06/02/16 16:12 Peripheral/Venous Blood Culture - Preliminary NO GROWTH AFTER 24 HOURS
[2016-06-05 09:12] VITALS: BP 117/67
[2016-06-05] MEDS ORDERED: LEVAQUIN PO SCH (10:00)
--- NOTE | 2016-06-05 10:00 | Discharge Summary ---
Providers - Providers Date of Admission: 06/02/16 04:14 Date of discharge: 06/05/16 Attending physician: LB KHAN Primary care physician: NEWS DEPARTMENT INTERN Hospitalization Reason for admission: sepsis, pneumonia Condition: Stable Pertinent studies: cxray- patchy airspace consolidation as the right middle lobe and right lower lobe concerning for pneumonia Hospital course: Mr. Judge is a 20-year-old man who presented to the emergency room with shortness of breath and cough. He was diagnosed as having sepsis present on admission secondary to pneumonia. He was started on supplemental oxygen for acute hypoxic respiratory failure. He was also started on IV antibiotics. Symptoms improved and he was weaned off oxygen prior to discharge. His sepsis resolved. Condition at discharge-stable 32 minutes spent preparing discharge Disposition: DISCHARGED TO HOME OR SELFCARE - Discharge Diagnoses (1) Dyspnea Status: Acute Qualifiers: Dyspnea type: shortness of breath Qualified Code(s): R06.02 - Shortness of breath (2) Pneumonia Status: Acute Qualifiers: Pneumonia type: due to unspecified organism Laterality: right Lung location: unspecified part of lung Qualified Code(s): J18.9 - Pneumonia, unspecified organism (3) Sepsis Status: Acute Core Measure Documentation - Palliative Care Palliative Care/ Comfort Measures: Not Applicable - Core Measures Any of the following diagnoses?: none Exam - Constitutional Vitals: Temp Pulse Resp BP Pulse Ox 97.9 F 82 18 117/67 95 06/05/16 08:00 06/05/16 08:00 06/05/16 08:00 06/05/16 08:00 06/05/16 08:00 General appearance: Present: no acute distress, well-nourished - EENT Eyes: Present: PERRL, EOM intact. Absent: scleral icterus, conjunctival injection ENT: hearing intact, clear oral mucosa, no oropharyngeal erythema, no poor dentition - Neck Neck: Present: supple, normal ROM. Absent: enlarged thyroid, masses or JVD - Respiratory Respiratory effort: normal Respiratory: right: diminished, negative: rales, rhonchi, wheezing - Cardiovascular Rhythm: regular Heart Sounds: Present: S1 & S2. Absent: gallop - Extremities Extremities: no ischemia, pulses intact, pulses symmetrical, No edema Peripheral Pulses: within normal limits - Abdominal General gastrointestinal: Present: soft, non-tender, non-distended Male genitourinary: Present: deferred - Rectal Rectal Exam: deferred - Integumentary Integumentary: Present: clear - Musculoskeletal Musculoskeletal: strength equal bilaterally, right sided weakness - Psychiatric Psychiatric: appropriate mood/affect, intact judgment & insight - Neurologic Neurologic: CNII-XII intact, moves all extremities Plan Activity: no restrictions Diet: regular Follow up with: PRIMARY CARE, [Primary Care Provider] - 3-5 Days Prescriptions: Levofloxacin [Levaquin TAB] 750 mg PO Q24HR #5 tablet guaiFENesin ER [Mucinex ER] 600 mg PO BID #14 tablet
[2016-06-05] MEDS: PROVENTIL IH SCH (10:52)
[2016-06-05] MEDS: MUCINEX ER PO SCH (11:01)
== END 2016-06-05 13:43 | disposition home or self-care (01) | DRG 871 ==
LOC: ED 16:02 → 3A 06-02 04:14
PROVIDERS: ADMIT Internal Medicine; ATTEND Hospitalist
DX: A41.9 Sepsis, unspecified organism (principal); J18.9 Pneumonia, unspecified organism; J96.01 Acute respiratory failure with hypoxia; J45.909 Unspecified asthma, uncomplicated; Z88.1 Allergy status to other antibiotic agents
CPT/HCPCS: 36415; 71020; 80048; 80053; 82140; 85007; 85025; 87040; 94640; 94760; 96365; 96366; 96375; J1956; J3370; J7030; J7040